=== PATIENT | male | born 1940 | race Caucasian/White ===

== ENCOUNTER 2016-11-02 22:16 | Inpatient (IN) | payer MEDICARE, BC ==
[~2016-11-02] VITALS: Ht 182.9 cm; Wt 74.4 kg
[2016-11-02] MEDS ORDERED: Furosemide 100 MG/10 ML VIAL ONE (23:21)
[2016-11-03] MEDS ORDERED: SALINE FLUSH 10 ML FLUSH PRN (02:00)
[2016-11-03] MEDS ORDERED: ACETAMINOPHEN 325 MG TAB PO PRN (02:00)
[2016-11-03] MEDS ORDERED: ONDANSETRON 4 MG VIAL IV PRN (02:00)
[2016-11-03] MEDS ORDERED: DOCUSATE SOD 100 MG CAP PO PRN (02:00)
[2016-11-03 03:39] VITALS: BP_SYST 106; RESP 20; TEMP 97.3
[2016-11-03 03:40] VITALS: Ht 182.9 cm; Wt 74.4 kg
[2016-11-03 04:07] VITALS: RESP 18
[2016-11-03] MEDS: SODIUM CHLORIDE 0.9% FLUSH BAG 500 ML IV SCH ×2 (05:17→21:45)
[2016-11-03] MEDS: SALINE FLUSH 10 ML FLUSH SCH ×3 (05:17→21:45)
[2016-11-03 07:54] VITALS: BP_SYST 113; RESP 20; TEMP 97.6
[2016-11-03] MEDS: ASPIRIN EC 81 MG TAB PO SCH (08:40)
[2016-11-03] MEDS: LISINOPRIL 2.5 MG TAB PO SCH (08:40)
[2016-11-03] MEDS: Furosemide 40 MG/4 ML VIAL IV SCH ×2 (08:40→17:10)
[2016-11-03 11:17] VITALS: BP_SYST 112; RESP 18; TEMP 97.3
[2016-11-03 16:02] VITALS: BP_SYST 98; RESP 18; TEMP 97.7
[2016-11-03 20:00] VITALS: BP_SYST 110; RESP 22; TEMP 97.5
[2016-11-04] VITALS (55 sets, daily range): BP systolic 41–108; RESP 12–26; TEMP 97.3–98.2
[2016-11-04] MEDS: LISINOPRIL 2.5 MG TAB PO SCH (06:33)
[2016-11-04] MEDS: ASPIRIN EC 81 MG TAB PO SCH (06:33)
[2016-11-04] MEDS: Furosemide 40 MG/4 ML VIAL IV SCH ×2 (06:34→16:42)
[2016-11-04] MEDS: SALINE FLUSH 10 ML FLUSH SCH ×2 (06:34→20:36)
[2016-11-04] MEDS ORDERED: METOPROLOL 5 MG/5 ML VIAL IV ONE (07:45)
[2016-11-04] MEDS ORDERED: METOPROLOL TART 25 MG TAB PO SCH (09:00)
[2016-11-04] MEDS ORDERED: ENOXAPARIN 40 MG/0.4 ML SYR SUBQ SCH (09:00)
[2016-11-04] MEDS ORDERED: CARDIZEM 1 MG/ML DRIP 125 ML IV SCH (13:35)
[2016-11-04] MEDS ORDERED: DIGOXIN 0.5 MG/2 ML AMP ONE (16:33)
[2016-11-04] MEDS ORDERED: DIGOXIN 0.5 MG/2 ML AMP IV STA (16:35)
[2016-11-04] MEDS ORDERED: SODIUM CHLORIDE 0.9% 250 ML IV ONE ×3 (16:35→21:35)
[2016-11-04] MEDS ORDERED: DEXAMETHASONE INJ 4 MG in SODIUM CHLORIDE 0.9% 50 ML IV ONE (18:35)
[2016-11-04] MEDS ORDERED: SODIUM CHLORIDE 0.9% 500 ML IV ONE (18:45)
[2016-11-04] MEDS ORDERED: DEXAMETHASONE 4 MG/ML VIAL IV ONE (18:45)
[2016-11-04] MEDS: ENOXAPARIN 80 MG/0.8 ML SYR SUBQ SCH (20:37)
[2016-11-04] MEDS ORDERED: DIGOXIN 0.5 MG/2 ML AMP IV ONE (21:00)
[2016-11-05] VITALS (51 sets, daily range): BP systolic 79–115; RESP 13–27; TEMP 96–98.8
[2016-11-05] MEDS: SODIUM CHLORIDE 0.9% FLUSH BAG 500 ML IV SCH (06:00)
[2016-11-05] MEDS: NEB-XOPENEX 1.25 MG/3 ML INH SCH ×5 (08:20→23:41)
[2016-11-05] MEDS: NEB-ATROVENT INH SCH ×3 (08:20→19:42)
[2016-11-05] MEDS: NEB-BUDESONIDE 0.5 MG INH SCH ×2 (08:20→19:42)
[2016-11-05] MEDS: SALINE FLUSH 10 ML FLUSH SCH ×2 (08:27→21:02)
[2016-11-05] MEDS: ASPIRIN EC 81 MG TAB PO SCH (08:27)
[2016-11-05] MEDS: ENOXAPARIN 80 MG/0.8 ML SYR SUBQ SCH ×2 (08:34→21:00)
[2016-11-05] MEDS ORDERED: DESONIDE 0.05% TOPICAL SCH (09:00)
[2016-11-05] MEDS ORDERED: DIGOXIN 0.5 MG/2 ML AMP IV ONE ×2 (10:20→14:30)
[2016-11-05] MEDS: FLINTSTONES COMPLETE PO SCH (10:35)
[2016-11-05] MEDS: DESONIDE 0.05% TOPICAL SCH ×2 (10:36→21:03)
[2016-11-05] MEDS: FLUOCINONIDE 0.05% OINT 15 GM TOPICAL SCH ×2 (10:37→21:03)
[2016-11-05] MEDS ORDERED: MISSING DOSE XX ONE ×2 (11:05→23:40)
[2016-11-05] MEDS: Carvedilol 3.125 MG TAB PO SCH ×2 (11:07→20:58)
[2016-11-05] MEDS ORDERED: PHARMACY TO DOSE ZOSYN IV SCH (11:30)
[2016-11-05] MEDS ORDERED: PHARMACY TO DOSE VANCOMYCIN IV SCH (11:30)
[2016-11-05] MEDS ORDERED: VANCOMYCIN 1,000 MG in SODIUM CHLORIDE 0.9% 250 ML IV SCH (12:00)
[2016-11-05] MEDS ORDERED: PIPERACIL/TAZO 3.375GM/50ML 50 ML IV SCH (14:00)
[2016-11-05] MEDS ORDERED: ALU/MAG/SIM 30 ML UDC PO PRN (15:25)
[2016-11-05] MEDS ORDERED: ALU/MAG/SIM 30 ML UDC ONE (15:26)
[2016-11-05] MEDS: NEB-BROVANA 15 MCG/2 ML INH SCH (19:42)
[2016-11-05] MEDS: FAMOTIDINE 20 MG TAB PO SCH (20:59)
[2016-11-05] MEDS ORDERED: FAMOTIDINE 20 MG TAB PO SCH (21:00)
[2016-11-06] VITALS (36 sets, daily range): BP systolic 92–138; RESP 14–29; TEMP 97.4–98.5
[2016-11-06] MEDS: NEB-XOPENEX 1.25 MG/3 ML INH SCH ×6 (02:01→22:36)
[2016-11-06] MEDS: SODIUM CHLORIDE 0.9% FLUSH BAG 500 ML IV SCH (06:00)
[2016-11-06] MEDS: NEB-BUDESONIDE 0.5 MG INH SCH ×2 (06:46→18:12)
[2016-11-06] MEDS: NEB-ATROVENT INH SCH ×3 (06:46→18:12)
[2016-11-06] MEDS: NEB-BROVANA 15 MCG/2 ML INH SCH ×2 (06:46→18:12)
[2016-11-06] MEDS: FLINTSTONES COMPLETE PO SCH (08:40)
[2016-11-06] MEDS: FAMOTIDINE 20 MG TAB PO SCH ×2 (08:41→21:24)
[2016-11-06] MEDS: ASPIRIN EC 81 MG TAB PO SCH (08:41)
[2016-11-06] MEDS: SALINE FLUSH 10 ML FLUSH SCH ×2 (08:43→21:25)
[2016-11-06] MEDS: FLUOCINONIDE 0.05% OINT 15 GM TOPICAL SCH ×2 (08:43→21:25)
[2016-11-06] MEDS: DESONIDE 0.05% TOPICAL SCH ×2 (08:43→21:25)
[2016-11-06] MEDS ORDERED: Carvedilol 3.125 MG TAB PO SCH (09:00)
[2016-11-06] MEDS: ENOXAPARIN 80 MG/0.8 ML SYR SUBQ SCH (09:00)
[2016-11-06] MEDS ORDERED: Carvedilol 3.125 MG TAB PO ONE (10:19)
[2016-11-06] MEDS ORDERED: COSYNTROPIN 0.25 MG/ML VIAL IV ONE (10:50)
[2016-11-06] MEDS: SPIRONOLACTONE 25 MG TAB PO SCH (11:24)
[2016-11-06] MEDS: DIGOXIN 0.125 MG TAB PO SCH (12:17)
[2016-11-06] MEDS ORDERED: MISSING DOSE XX ONE (21:00)
[2016-11-06] MEDS: APIXABAN 5 MG TAB PO SCH (21:25)
[2016-11-06] MEDS: Carvedilol 6.25 MG TAB PO SCH (21:25)
[2016-11-07] MEDS: SODIUM CHLORIDE 0.9% FLUSH BAG 500 ML IV SCH (02:36)
[2016-11-07 03:26] VITALS: BP_SYST 94; RESP 18; TEMP 97.3
[2016-11-07] MEDS: NEB-XOPENEX 1.25 MG/3 ML INH SCH ×5 (06:25→22:14)
[2016-11-07] MEDS: NEB-BROVANA 15 MCG/2 ML INH SCH ×2 (06:25→18:09)
[2016-11-07] MEDS: NEB-BUDESONIDE 0.5 MG INH SCH ×2 (06:25→18:09)
[2016-11-07] MEDS: NEB-ATROVENT INH SCH ×3 (06:25→18:09)
[2016-11-07 07:06] VITALS: BP_SYST 120; RESP 18; TEMP 97.8
[2016-11-07] MEDS: DESONIDE 0.05% TOPICAL SCH ×2 (07:47→20:04)
[2016-11-07] MEDS: FLUOCINONIDE 0.05% OINT 15 GM TOPICAL SCH ×2 (07:47→20:05)
[2016-11-07] MEDS: SPIRONOLACTONE 25 MG TAB PO SCH (07:48)
[2016-11-07] MEDS: FLINTSTONES COMPLETE PO SCH (07:48)
[2016-11-07] MEDS: FAMOTIDINE 20 MG TAB PO SCH ×2 (07:48→20:04)
[2016-11-07] MEDS: APIXABAN 5 MG TAB PO SCH ×2 (07:49→20:04)
[2016-11-07] MEDS: Carvedilol 6.25 MG TAB PO SCH ×2 (07:49→20:04)
[2016-11-07] MEDS: SALINE FLUSH 10 ML FLUSH SCH ×2 (07:50→20:04)
[2016-11-07 11:05] VITALS: BP_SYST 112; RESP 18; TEMP 97.6
[2016-11-07] MEDS: DIGOXIN 0.125 MG TAB PO SCH (11:40)
[2016-11-07 15:21] VITALS: BP_SYST 112; RESP 18; TEMP 97.4
[2016-11-07 19:13] VITALS: BP_SYST 134; RESP 18; TEMP 98.2
[2016-11-07 23:15] VITALS: BP_SYST 105; RESP 18; TEMP 98.4
[2016-11-08 02:46] VITALS: BP_SYST 111; RESP 18; TEMP 98.9
[2016-11-08] MEDS: SODIUM CHLORIDE 0.9% FLUSH BAG 500 ML IV SCH (04:24)
[2016-11-08] MEDS: NEB-XOPENEX 1.25 MG/3 ML INH SCH ×5 (06:23→22:44)
[2016-11-08] MEDS: NEB-ATROVENT INH SCH ×3 (06:23→18:21)
[2016-11-08] MEDS: NEB-BUDESONIDE 0.5 MG INH SCH ×2 (06:23→18:21)
[2016-11-08] MEDS: NEB-BROVANA 15 MCG/2 ML INH SCH ×2 (06:23→18:21)
[2016-11-08 07:04] VITALS: BP_SYST 111; RESP 18; TEMP 98.4
[2016-11-08] MEDS ORDERED: MISSING DOSE XX ONE (07:50)
[2016-11-08] MEDS: SPIRONOLACTONE 25 MG TAB PO SCH (08:20)
[2016-11-08] MEDS: FAMOTIDINE 20 MG TAB PO SCH ×2 (08:20→20:30)
[2016-11-08] MEDS: Carvedilol 6.25 MG TAB PO SCH ×2 (08:20→20:30)
[2016-11-08] MEDS: SALINE FLUSH 10 ML FLUSH SCH ×2 (08:20→20:30)
[2016-11-08] MEDS: APIXABAN 5 MG TAB PO SCH ×2 (08:20→20:30)
[2016-11-08] MEDS: FLINTSTONES COMPLETE PO SCH (08:20)
[2016-11-08] MEDS: FLUOCINONIDE 0.05% OINT 15 GM TOPICAL SCH ×2 (08:23→20:33)
[2016-11-08] MEDS: DESONIDE 0.05% TOPICAL SCH ×2 (08:23→20:32)
[2016-11-08] MEDS: LISINOPRIL 2.5 MG TAB PO SCH (10:49)
[2016-11-08] MEDS: DIGOXIN 0.125 MG TAB PO SCH (11:31)
[2016-11-08 11:40] VITALS: BP_SYST 115; RESP 18; TEMP 97.8
[2016-11-08 15:27] VITALS: BP_SYST 108; RESP 18; TEMP 98
[2016-11-08 19:46] VITALS: BP_SYST 106; RESP 18; TEMP 97.4
[2016-11-08 23:50] VITALS: BP_SYST 110; RESP 18; TEMP 97.6
[2016-11-09 04:20] VITALS: BP_SYST 119; RESP 18; TEMP 97.5
[2016-11-09] MEDS: SODIUM CHLORIDE 0.9% FLUSH BAG 500 ML IV SCH (06:00)
[2016-11-09] MEDS: NEB-BROVANA 15 MCG/2 ML INH SCH ×2 (06:15→18:16)
[2016-11-09] MEDS: NEB-BUDESONIDE 0.5 MG INH SCH ×2 (06:16→18:16)
[2016-11-09] MEDS: NEB-ATROVENT INH SCH ×3 (06:16→18:16)
[2016-11-09] MEDS: NEB-XOPENEX 1.25 MG/3 ML INH SCH ×4 (06:16→18:16)
[2016-11-09 07:12] VITALS: BP_SYST 123; RESP 20; TEMP 97.5
[2016-11-09] MEDS ORDERED: Carvedilol 6.25 MG TAB PO SCH (09:00)
[2016-11-09] MEDS: SALINE FLUSH 10 ML FLUSH SCH (09:18)
[2016-11-09] MEDS: SPIRONOLACTONE 25 MG TAB PO SCH (09:19)
[2016-11-09] MEDS: FAMOTIDINE 20 MG TAB PO SCH (09:20)
[2016-11-09] MEDS: APIXABAN 5 MG TAB PO SCH (09:20)
[2016-11-09] MEDS: LISINOPRIL 2.5 MG TAB PO SCH (09:20)
[2016-11-09] MEDS: FLINTSTONES COMPLETE PO SCH (09:20)
[2016-11-09] MEDS: FLUOCINONIDE 0.05% OINT 15 GM TOPICAL SCH (09:21)
[2016-11-09] MEDS: DESONIDE 0.05% TOPICAL SCH (09:21)
[2016-11-09 11:37] VITALS: BP_SYST 101; RESP 20; TEMP 97.3
[2016-11-09 11:38] VITALS: RESP 20; TEMP 97.3
[2016-11-09 14:57] VITALS: BP_SYST 103; RESP 20; TEMP 97
[2016-11-09 17:38] VITALS: BP_SYST 103; RESP 20; TEMP 97
[2016-11-10] MEDS ORDERED: DIGOXIN 0.125 MG TAB PO SCH (12:00)
== END 2016-11-09 19:38 | disposition home or self-care (01) | DRG 291 ==
LOC: ENRESERVDT → ENRESERV → ENRESERVTM → ER 22:16 → EMR 11-03 01:58 → ENPENDDIS 11-03 01:58 → 3NT 11-03 03:41 → PCU 11-04 14:50 → CCU 11-04 19:38 → 4THE 11-06 18:32
PROVIDERS: ADMIT Internal Medicine; ATTEND Internal Medicine
DX: I11.0 Hypertensive heart disease with heart failure (principal); J18.9 Pneumonia, unspecified organism; J96.01 Acute respiratory failure with hypoxia; N17.9 Acute kidney failure, unspecified; I95.9 Hypotension, unspecified; I48.1 Persistent atrial fibrillation; E27.3 Drug-induced adrenocortical insufficiency; J44.0 Chronic obstructive pulmonary disease with (acute) lower respiratory infection; E87.70 Fluid overload, unspecified; L10.9 Pemphigus, unspecified; I50.43 Acute on chronic combined systolic (congestive) and diastolic (congestive) heart failure; T38.0X5A Adverse effect of glucocorticoids and synthetic analogues, initial encounter; I71.4 Abdominal aortic aneurysm, without rupture; Z87.891 Personal history of nicotine dependence
CPT/HCPCS: 36415; 36600; 71010; 71250; 80048; 80051; 80053; 80061; 80162; 82330; 82533; 82550; 82553; 82803; 83605; 83615; 83735; 83880; 84145; 84439; 84443; 84484; 85025; 85379; 85610; 85730; 86235; 86738; 87040; 87071; 87278; 87299; 87385; 93005; 94640; 94660; 94799; 96374; 99222; 99223; 99232; 99233